=== PATIENT | male | born 1990 | race African-American/Black ===

== ENCOUNTER 2018-02-23 19:15 | Emergency (ER) | payer MEDICAID ==
[~2018-02-23] VITALS: Ht 182.9 cm; Wt 55.1 kg
[~2018-02-23 19:15] MED LIST: HYDR1TAB PO; IBUP-1984 PO; LEG1EACH99 MC; NAPR-56 PO
[2018-02-23 19:17] VITALS: BP 125/70
[2018-02-23] MEDS ORDERED: morphine 4 MG/ML inj SYRINge IM ONE ×2 (19:35→20:50)
[2018-02-23] MEDS ORDERED: HYDROcodone/acetaminophen 10/325mg tab PO ONE ×2 (19:35→20:25)
[2018-02-23] MEDS ORDERED: ondansetron 4mg rapidly disintigrating tab PO ONE (20:30)
[2018-02-23] MEDS ORDERED: HYDR-565 PO (20:45)
[2018-02-23] MEDS ORDERED: IBUP-1984 PO (20:46)
[2018-02-23] MEDS ORDERED: ONDA8TAB6 PO (21:10)
== END 2018-02-23 21:17 | disposition home or self-care (01) ==
LOC: ER 19:16
DX: S70.02XA Contusion of left hip, initial encounter (principal); R10.9 Unspecified abdominal pain; G89.29 Other chronic pain; J45.909 Unspecified asthma, uncomplicated; Z79.899 Other long term (current) drug therapy; V19.9XXA Pedal cyclist (driver) (passenger) injured in unspecified traffic accident, initial encounter; Y93.89 Activity, other specified; Y92.89 Other specified places as the place of occurrence of the external cause; Y99.8 Other external cause status
CPT/HCPCS: 73502; 96372; 99284; J2270

== ENCOUNTER 2019-03-23 05:36 | Emergency (ER) | payer MEDICAID, OTHER ==
[~2019-03-23] VITALS: Ht 177.8 cm; Wt 57.0 kg
[~2019-03-23 05:36] MED LIST changes: +ONDA8TAB6 PO
[2019-03-23 05:40] VITALS: BP 119/75
[2019-03-23] MEDS ORDERED: dexamethasone sod phosphate 10mg/ml inj PO STA (07:01)
[2019-03-23] MEDS ORDERED: PRED20TA PO (07:03)
== END 2019-03-23 07:30 | disposition home or self-care (01) ==
LOC: ER 05:37
DX: L23.7 Allergic contact dermatitis due to plants, except food (principal); J45.909 Unspecified asthma, uncomplicated; G89.29 Other chronic pain; F17.210 Nicotine dependence, cigarettes, uncomplicated; Z79.899 Other long term (current) drug therapy
CPT/HCPCS: 99283; J1100

== ENCOUNTER 2019-09-11 19:27 | Emergency (ER) | payer MEDICAID, OTHER ==
[~2019-09-11] VITALS: Ht 182.9 cm; Wt 72.0 kg
--- NOTE | 2019-09-11 19:42 | NUR ---
PATIENT WAS CUTTING FIREWOOD WEARING GLOVES AND DID NOT TAKE GLOVES OFF WHEN HE VOIDED. PATIENT THINKS THAT HE HAS POISON [place]. PATIENT'S PENIS IS SWOLLEN
[2019-09-11] MEDS ORDERED: triamcinolone acetonide 40mg/ml inj IM ONE (20:10)
[2019-09-11 20:29] VITALS: BP 125/65
== END 2019-09-11 20:32 | disposition home or self-care (01) ==
LOC: ER 19:27
DX: L23.7 Allergic contact dermatitis due to plants, except food (principal); J45.909 Unspecified asthma, uncomplicated; G89.29 Other chronic pain; Z79.899 Other long term (current) drug therapy
CPT/HCPCS: 96372; 99283; J3301

== ENCOUNTER 2019-10-21 20:27 | Emergency (ER) | payer MEDICAID ==
[~2019-10-21] VITALS: Ht 177.8 cm; Wt 75.0 kg
--- NOTE | 2019-10-21 22:51 | NUR ---
PATIENT ABLE TO STAND AND TRANSFER TO W/C W/O ASSISTANCE FOR TRANSPORT TO XRAY. PATIENT CURRENTLY LAYING ON LEFT SIDE WITH FEET ON FLOOR
[2019-10-22] MEDS ORDERED: IBUP-1986 PO (00:13)
[2019-10-22 00:23] VITALS: BP 112/60
== END 2019-10-22 00:39 | disposition home or self-care (01) ==
LOC: ER 20:28
DX: S70.01XA Contusion of right hip, initial encounter (principal); J45.909 Unspecified asthma, uncomplicated; G89.29 Other chronic pain; Z79.899 Other long term (current) drug therapy; V29.88XA Motorcycle rider (driver) (passenger) injured in other specified transport accidents, initial encounter; Y93.55 Activity, bike riding; Y92.488 Other paved roadways as the place of occurrence of the external cause; Y99.8 Other external cause status
CPT/HCPCS: 72100; 72170; 99284; 99285

== ENCOUNTER 2019-12-12 01:10 | Emergency (ER) | payer MEDICAID ==
[~2019-12-12] VITALS: Ht 177.8 cm; Wt 79.5 kg
[~2019-12-12 01:10] MED LIST changes: +IBUP-1986 PO
--- NOTE | 2019-12-12 01:45 | NUR ---
MONTY CASE ELKE: [id number]. OFFICER IN ROOM INTERVIEWING PT.
[2019-12-12 03:07] VITALS: BP 114/74
[2019-12-12] MEDS ORDERED: HYDROcodone/acetaminophen 5mg/325mg tablet PO ONE (03:10)
[2019-12-12] MEDS ORDERED: CEPH500C5 PO (04:04)
[2019-12-12] MEDS ORDERED: HYDR-3965 PO (04:04)
[2019-12-12] MEDS ORDERED: TETanus/Pertussis (Acell)/Diphther VAC/PF (Tdap-Adult) 0.5ml syringe IMVAC ONE (04:05)
== END 2019-12-12 05:36 | disposition home or self-care (01) ==
LOC: ER 01:11 → EEVIPCON 01:11 → ER 05:36
DX: S51.812A Laceration without foreign body of left forearm, initial encounter (principal); S51.012A Laceration without foreign body of left elbow, initial encounter; J45.909 Unspecified asthma, uncomplicated; G89.29 Other chronic pain; Z79.899 Other long term (current) drug therapy; W45.8XXA Other foreign body or object entering through skin, initial encounter; Y93.89 Activity, other specified; Y92.89 Other specified places as the place of occurrence of the external cause; Y99.8 Other external cause status
CPT/HCPCS: 12002; 73070; 90471; 90715; 99283

== ENCOUNTER 2019-12-18 21:49 | Emergency (ER) | payer MEDICAID ==
[~2019-12-18] VITALS: Ht 177.8 cm; Wt 75.0 kg
[~2019-12-18 21:49] MED LIST changes: +CEPH500C5 PO; +HYDR-3965 PO
[2019-12-18 22:02] VITALS: BP 127/83
== END 2019-12-18 22:53 | disposition home or self-care (01) ==
LOC: ER 21:50
DX: S51.812D Laceration without foreign body of left forearm, subsequent encounter (principal); W26.0XXD Contact with knife, subsequent encounter; G89.29 Other chronic pain; F17.210 Nicotine dependence, cigarettes, uncomplicated; Z79.2 Long term (current) use of antibiotics; Z79.899 Other long term (current) drug therapy
CPT/HCPCS: 99281

== ENCOUNTER 2021-08-18 19:18 | Emergency (ER) | payer MEDICAID ==
[~2021-08-18 19:18] MED LIST changes: -CEPH500C5 PO; -HYDR-3965 PO
== END 2021-08-18 21:24 | disposition left against medical advice (07) ==
LOC: ER 19:19
DX: Z53.21 Procedure and treatment not carried out due to patient leaving prior to being seen by health care provider (principal)

== ENCOUNTER 2022-01-28 13:30 | Emergency (ER) | payer MEDICAID ==
[~2022-01-28] VITALS: Ht 182.9 cm; Wt 68.0 kg
[2022-01-28 13:47] VITALS: BP 105/67
[2022-01-28] MEDS ORDERED: HYDR-3686 PO (14:58)
[2022-01-28] MEDS ORDERED: DICY10CA88 PO (14:58)
[2022-01-28] MEDS ORDERED: DIPH25CA83 PO (14:58)
== END 2022-01-28 15:05 | disposition home or self-care (01) ==
LOC: ER 13:30
DX: F11.13 Opioid abuse with withdrawal (principal); F15.10 Other stimulant abuse, uncomplicated; J45.909 Unspecified asthma, uncomplicated; G89.29 Other chronic pain
CPT/HCPCS: 99283